=== PATIENT | female | born 1995 | race American Indian/Alaskan Native ===

== ENCOUNTER 2017-09-05 16:59 | Emergency (ER) | payer SELFPAY ==
--- NOTE | 2017-09-05 18:07 | Emergency Department Report ---
ED Female HPI - General Chief complaint: Urogenital-Female Stated complaint: VAGINAL PAIN Time Seen by Provider: 09/05/17 17:50 Source: patient Mode of arrival: Ambulatory Limitations: No Limitations - History of Present Illness Initial comments: Patient is a 22-year-old female with no prior medical history who is who presents to ED complaining of vaginal pain for the past week. Patient states pain is localized to her pelvic region and sometimes her vaginal area. She describes been a sharp, pressure-like pain. Patient states she does get a sharp pain with urination but no burning. Patient states of 2 weeks ago she had a day or 2 of vaginal discharge that resolved. Patient denies vaginal bleeding this is a LMP was last month cannot recall the date. MD Complaint: dysuria, pelvic pain, possible STD - Related Data Previous Rx's Medication Instructions Recorded Last Taken Type Fluconazole [Diflucan TAB] 150 mg PO DAILY #2 tablet 09/05/17 Unknown Rx metroNIDAZOLE [Flagyl] 500 mg PO Q12HR #14 tab 09/05/17 Unknown Rx traMADol [Ultram] 50 mg PO Q6HR PRN #20 tablet 09/05/17 Unknown Rx HYDROcodone/APAP 5-325 [[place] 1 - 2 each PO Q6HR PRN #10 tablet 09/06/17 Unknown Rx 5/325] Ibuprofen [Motrin 800 MG tab] 800 mg PO Q8HR PRN #20 tablet 09/06/17 Unknown Rx Allergies Allergy/AdvReac Type Severity Reaction Status Date / Time No Known Allergies Allergy Unverified 09/05/17 17:19 ED Review of Systems ROS: Stated complaint: VAGINAL PAIN Other details as noted in HPI Constitutional: denies: chills, fever Eyes: denies: eye pain, eye discharge, vision change ENT: denies: ear pain, throat pain Respiratory: denies: cough, shortness of breath, wheezing Cardiovascular: denies: chest pain, palpitations Endocrine: no symptoms reported Gastrointestinal: denies: abdominal pain, nausea, diarrhea Genitourinary: denies: urgency, dysuria, discharge Musculoskeletal: denies: back pain, joint swelling, arthralgia Skin: denies: rash, lesions Neurological: denies: headache, weakness, paresthesias Psychiatric: denies: anxiety, depression Hematological/Lymphatic: denies: easy bleeding, easy bruising ED Past Medical Hx - Past Medical History Previous Medical History?: No Additional medical history: fibroids - Surgical History Past Surgical History?: No - Social History Smoking Status: Never Smoker Substance Use Type: None - Medications Home Medications: Home Medications Medication Instructions Recorded Confirmed Last Taken Type Fluconazole [Diflucan TAB] 150 mg PO DAILY #2 tablet 09/05/17 Unknown Rx metroNIDAZOLE [Flagyl] 500 mg PO Q12HR #14 tab 09/05/17 Unknown Rx traMADol [Ultram] 50 mg PO Q6HR PRN #20 tablet 09/05/17 Unknown Rx HYDROcodone/APAP 5-325 [[place] 1 - 2 each PO Q6HR PRN #10 tablet 09/06/17 Unknown Rx 5/325] Ibuprofen [Motrin 800 MG tab] 800 mg PO Q8HR PRN #20 tablet 09/06/17 Unknown Rx ED Physical Exam - General Limitations: No Limitations General appearance: alert, in no apparent distress - Head Head exam: Present: atraumatic, normocephalic - Eye Eye exam: Present: normal appearance - ENT ENT exam: Present: mucous membranes moist - Neck Neck exam: Present: normal inspection - Respiratory Respiratory exam: Present: normal lung sounds bilaterally. Absent: respiratory distress - Cardiovascular Cardiovascular Exam: Present: regular rate, normal rhythm. Absent: systolic murmur, diastolic murmur, rubs, gallop - GI/Abdominal GI/Abdominal exam: Present: soft, normal bowel sounds - External exam: Present: normal external exam Speculum exam: Present: vaginal discharge, cervical discharge. Absent: vaginal bleeding Bi-manual exam: Present: cervical motion tendernes, other (no uterine mass pALLPATED, NO OVARIAN MASS PALPATED). Absent: adnexal tenderness, uterine enlargement, uterine tenderness - Extremities Exam Extremities exam: Present: normal inspection, full ROM - Back Exam Back exam: Present: normal inspection - Neurological Exam Neurological exam: Present: alert, oriented X3, normal gait - Psychiatric Psychiatric exam: Present: normal affect, normal mood - Skin Skin exam: Present: warm, dry, intact, normal color. Absent: rash ED Course Vital Signs 09/05/17 09/05/17 17:15 19:40 Temperature 97.6 F 97.8 F Pulse Rate 64 56 L Respiratory 18 16 Rate Blood Pressure 110/66 Blood Pressure 108/76 [Left] O2 Sat by Pulse 100 100 Oximetry ED Medical Decision Making - Medical Decision Making 22-year-old female presents with vulvovaginitis/pelvic pain ED course: urinalysis and gonorrhea and Chlamydia cultures obtained. Urinalysis negative test was negative Patient received 250 mg of Rocephin, azithromycin 1g Patient states she has not been sexually active so she is not worried that she has an STD. Due to patient's complains of pelvic pain will prophylax her treat her in ED Discussed with patient findings and treatment. Discussed with the patient she will be going home on antibiotics for bacterial vaginosis and yeast infection as it was positive on her wet prep I discussed the patient and she is to follow-up with [facility] for well woman's exam/ Further testing and management Patient's alert and oriented times 3. Vital signs are normal patient is in no acute discharge. Patient will be discharged home with instructions. Critical care attestation.: If time is entered above; I have spent that time in minutes in the direct care of this critically ill patient, excluding procedure time. ED Disposition Clinical Impression: Vulvovaginal candidiasis, Bacterial vaginosis Disposition: TO HOME OR SELFCARE Is pt being admited?: No Does the pt Need Aspirin: No Condition: Stable Instructions: Bacterial Vaginosis (ED), Uterine Fibroids (ED), Sexually Transmitted Diseases (ED), Vulvovaginal Candidiasis (ED), Chronic Pelvic Pain in Women (ED) Additional Instructions: Make sure to follow up with the primary care physician as discussed. Also follow-up with the [facility] doctors as you've been prescribed. Take all your medications as you've been prescribed. If you have any worsening symptoms or develop new symptoms please return to ED immediately. Prescriptions: Fluconazole [Diflucan TAB] 150 mg PO DAILY #2 tablet metroNIDAZOLE [Flagyl] 500 mg PO Q12HR #14 tab traMADol [Ultram] 50 mg PO Q6HR PRN #20 tablet PRN Reason: Pain Referrals: [facility] [Primary Care Provider] - 3-5 Days JENNIFER LAZO MD [Referring] - 3-5 Days [facility] [Outside] - 3-5 Days [facility] [Outside] - 3-5 Days [facility] [Provider Group] - 3-5 Days Forms: STI Treatment and Prevention, Work/School Release Form(ED) Time of Disposition: 19:08
[2017-09-05 18:51] LABS: HCG Qualitative,Urine Negative (Negative)
[2017-09-05 18:59] LABS: Bilirubin,Urine NEG (Negative); Blood,Urine NEG (Negative); Color,Urine Yellow (Yellow); Mucus,Urine 3+ /HPF; Protein,Urine <15 mg/dL mg/dL (Negative)
[2017-09-05] MEDS ORDERED: XYLOCAINE 1% MPF 5 mL INFILTRATI ONE (19:04)
[2017-09-05] MEDS ORDERED: ROCEPHIN IM ONE (19:04)
[2017-09-05] MEDS ORDERED: ZITHROMAX PO ONE (19:04)
[2017-09-05 20:13] VITALS: BP 108/76
== END 2017-09-05 19:40 | disposition home or self-care (01) ==
LOC: ED 16:59
DX: B37.3 Candidiasis of vulva and vagina (principal); N76.0 Acute vaginitis
CPT/HCPCS: 81001; 81025; 87210; 87591; 96372; 99284; J0696; 99283

== ENCOUNTER 2017-09-06 10:06 | Emergency (ER) | payer SELFPAY ==
[2017-09-06] MEDS ORDERED: ZOFRAN IV ONE (10:58)
[2017-09-06] MEDS ORDERED: MORPHINE IV ONE ×3 (10:58→12:13)
--- NOTE | 2017-09-06 11:05 | Emergency Department Report ---
HPI - General Chief Complaint: Abdominal Pain Time Seen by Provider: 09/06/17 10:45 - HPI HPI: Room 17 The patient is a 22-year-old female presented with a chief complaint of abdominal pain. The patient states her symptoms began 2 months ago with vaginal and lower abdominal pain. Patient seen here yesterday diagnosed bacterial vaginosis and vaginal candidiasis. Patient was given a prescription for Diflucan in addition to metronidazole. Patient states she has only taken the Ultram so far. Patient states that pain medication is not helping for her to come back to the emergency department. Patient describes the pain as throbbing in nature. Patient denies any history of fever Location: Lower abdomen Duration: [See above] Quality: Pain Severity: 04/22 Modifying factors: [see above] Context: [see above] Mode of transportation: [not driving] ED Past Medical Hx - Past Medical History Previous Medical History?: Yes Additional medical history: fibroids - Surgical History Past Surgical History?: No - Family History Family history: no significant - Social History Smoking Status: Never Smoker Substance Use Type: None (denies illicit drug use) - Medications Home Medications: Home Medications Medication Instructions Recorded Confirmed Last Taken Type Fluconazole [Diflucan TAB] 150 mg PO DAILY #2 tablet 09/05/17 Unknown Rx metroNIDAZOLE [Flagyl] 500 mg PO Q12HR #14 tab 09/05/17 Unknown Rx traMADol [Ultram] 50 mg PO Q6HR PRN #20 tablet 09/05/17 Unknown Rx HYDROcodone/APAP 5-325 [[place] 1 - 2 each PO Q6HR PRN #10 tablet 09/06/17 Unknown Rx 5/325] Ibuprofen [Motrin 800 MG tab] 800 mg PO Q8HR PRN #20 tablet 09/06/17 Unknown Rx ED Review of Systems ROS: Stated complaint: VAGINAL PAIN Other details as noted in HPI Constitutional: denies: fever Gastrointestinal: abdominal pain, nausea, vomiting Physical Exam - Physical Exam Vital Signs: Vital Signs 09/06/17 09/06/17 10:18 10:25 Temperature 98 F 98 F Pulse Rate 71 71 Respiratory 16 16 Rate Blood Pressure 124/70 Blood Pressure 124/73 [Right] O2 Sat by Pulse 98 98 Oximetry Physical Exam: GENERAL: The patient is well-developed well-nourished female lying prone on the stretcher. In mild discomfort HEENT: Normocephalic. Atraumatic. Extraocular motions are intact. Patient has moist mucous membranes. NECK: Supple. Trachea midline CHEST/LUNGS: Clear to auscultation. There is no respiratory distress noted. HEART/CARDIOVASCULAR: Regular. There is no tachycardia. There is no gallop rub or murmur. ABDOMEN: Abdomen is soft, with tenderness to palpation in the suprapubic region. Patient has normal bowel sounds. There is no abdominal distention. SKIN: There is no rash. There is no edema. There is no diaphoresis. NEURO: The patient is awake, alert, and oriented. The patient is cooperative. The patient has normal speech MUSCULOSKELETAL: There is no evidence of acute injury. ED Course Vital Signs 09/06/17 09/06/17 10:18 10:25 Temperature 98 F 98 F Pulse Rate 71 71 Respiratory 16 16 Rate Blood Pressure 124/70 Blood Pressure 124/73 [Right] O2 Sat by Pulse 98 98 Oximetry ED Medical Decision Making - Lab Data Result diagrams: 09/06/17 11:07 09/06/17 11:07 - Radiology Data Radiology results: report reviewed (CT abdomen and pelvis), image reviewed (CT abdomen and pelvis) CT ABDOMEN PELVIS WITH CONTRAST: HISTORY: Lower abdominal pain. COMPARISON: none. TECHNIQUE: Helical CT in 1.25mm intervals following IV contrast. Sagittal and coronal reconstructions. FINDINGS: Lung bases: Normal. Liver: Normal. Biliary system: Normal. Pancreas: Normal. Spleen: Normal. Kidneys/ureters/bladder: Normal. Adrenal glands: Normal. Aorta: Normal. Intestines: Normal. Appendix: Normal. Pelvic viscera: The uterus is displaced to the right side of the pelvis by a large rounded mass measuring up to 9.5 x 7.8 cm in axial plane. This appears to represent a large exophytic fibroid projecting from the left lateral uterine wall. This fibroid demonstrates internal cystic change but no calcifications. A few additional smaller uterine fibroids are also suspected. Less likely this could represent a left ovarian mass although I believe I see a separate left ovary which contains a 1.6 cm cyst. The right ovary is not clearly identified. Ascites: Small pelvic ascites. Adenopathy: None. Musculoskeletal: Normal. IMPRESSION: Probable uterine fibroid disease. There appears to be a large exophytic fibroid from the left lateral uterine wall which displaces the uterus to the right. Less likely it a left ovarian lesion could be considered. See above. 1.6 cm left ovarian cyst. Small pelvic ascites. Consider further evaluation with pelvic ultrasound or pelvic MRI with and without contrast. Transcribed By: TTR Dictated By: WARD HU JR, MD Electronically Authenticated By: WARD HU JR, MD Signed Date/Time: 09/06/171207 DD/ 03 TD/TT: 09/06/171207 - Differential Diagnosis bacterial vaginosis, UTI, appendicitis, uterine fibroids Critical care attestation.: If time is entered above; I have spent that time in minutes in the direct care of this critically ill patient, excluding procedure time. ED Disposition Clinical Impression: Acute abdominal pain, Bacterial vaginosis, Vulvovaginal candidiasis, Uterine fibroid, Left ovarian cyst Disposition: TO HOME OR SELFCARE Is pt being admited?: No Does the pt Need Aspirin: No Condition: Stable Instructions: Bacterial Vaginosis (ED), Abdominal Pain (ED), Uterine Fibroids ( ED) Additional Instructions: Return to the emergency department immediately should you develop worsening symptoms, fever, inability to tolerate food or liquid or any other concerns. Prescriptions: HYDROcodone/APAP 5-325 [[place] 5/325] 1 - 2 each PO Q6HR PRN #10 tablet PRN Reason: Pain Ibuprofen [Motrin 800 MG tab] 800 mg PO Q8HR PRN #20 tablet PRN Reason: Pain Referrals: [facility] [Primary Care Provider] - 3-5 Days MISA RODRIGUES MD [Staff Physician] - 3-5 Days (Dr. Rodrigues is an [employer]. Please follow up with him for further evaluation of your uterine fibroids) Forms: STI Treatment and Prevention Time of Disposition: 12:20
[2017-09-06] MEDS ORDERED: NACL ONE (11:10)
[2017-09-06 11:26] LABS: Basophils % (Auto) 0.5 % (0.0-1.8); Eosinophils # (Auto) 0.3 K/mm3 (0.0-0.4); Eosinophils % (Auto) 4.6 % (0.0-4.3); Hematocrit 38.4 % (30.3-42.9); Hemoglobin 12.4 gm/dl (10.1-14.3); Lymphocytes # (Auto) 1.9 K/mm3 (1.2-5.4); Lymphocytes % (Auto) 25.6 % (13.4-35.0); Mean Corpuscular HGB Conc 32 % (30-34); Mean Corpuscular Hemoglobin 27 pg (28-32); Mean Corpuscular Volume 83 fl (79-97); Monocytes # (Auto) 0.5 K/mm3 (0.0-0.8); Monocytes % (Auto) 7.2 % (0.0-7.3); Platelet Count 249 K/mm3 (140-440); Red Blood Count 4.62 M/mm3 (3.65-5.03); Red Cell Distribution Width 14.9 % (13.2-15.2)
[2017-09-06 11:42] LABS: BUN/Creatinine Ratio 14; Blood Urea Nitrogen 7 mg/dL (7-17); Calcium 9.1 mg/dL (8.4-10.2); Hemolysis Index 147
--- NOTE | 2017-09-06 12:15 | Cat Scan Report ---
CT ABDOMEN PELVIS WITH CONTRAST: HISTORY: Lower abdominal pain. COMPARISON: none. TECHNIQUE: Helical CT in 1.25mm intervals following IV contrast. Sagittal and coronal reconstructions. FINDINGS: Lung bases: Normal. Liver: Normal. Biliary system: Normal. Pancreas: Normal. Spleen: Normal. Kidneys/ureters/bladder: Normal. Adrenal glands: Normal. Aorta: Normal. Intestines: Normal. Appendix: Normal. Pelvic viscera: The uterus is displaced to the right side of the pelvis by a large rounded mass measuring up to 9.5 x 7.8 cm in axial plane. This appears to represent a large exophytic fibroid projecting from the left lateral uterine wall. This fibroid demonstrates internal cystic change but no calcifications. A few additional smaller uterine fibroids are also suspected. Less likely this could represent a left ovarian mass although I believe I see a separate left ovary which contains a 1.6 cm cyst. The right ovary is not clearly identified. Ascites: Small pelvic ascites. Adenopathy: None. Musculoskeletal: Normal. IMPRESSION: Probable uterine fibroid disease. There appears to be a large exophytic fibroid from the left lateral uterine wall which displaces the uterus to the right. Less likely it a left ovarian lesion could be considered. See above. 1.6 cm left ovarian cyst. Small pelvic ascites. Consider further evaluation with pelvic ultrasound or pelvic MRI with and without contrast.
[2017-09-06 13:49] VITALS: BP 120/80
== END 2017-09-06 12:34 | disposition home or self-care (01) ==
LOC: ED 10:06
DX: D25.9 Leiomyoma of uterus, unspecified (principal); N83.202 Unspecified ovarian cyst, left side; B37.3 Candidiasis of vulva and vagina; N76.0 Acute vaginitis
CPT/HCPCS: 36415; 74177; 80048; 85025; 96374; 96375; 96376; 99284; J2270; J2405; Q9967

== ENCOUNTER 2019-06-16 10:32 | Emergency (ER) | payer SELFPAY ==
[2019-06-16 10:40] VITALS: BP 138/94
[2019-06-16 11:56] LABS: HCG Qualitative,Urine Negative (Negative)
[2019-06-16 11:57] LABS: Mucus,Urine 3+ /HPF
[2019-06-16 11:58] LABS: RBC,Urine > 182.0 /HPF (0.0-6.0)
[2019-06-16 12:00] LABS: Bilirubin,Urine NEG (Negative); Blood,Urine LG (Negative); Color,Urine Yellow (Yellow); Urobilinogen,Urine < 2.0 mg/dL (<2.0)
--- NOTE | 2019-06-16 12:06 | Emergency Department Report ---
Chief Complaint: Urogenital-Female Stated Complaint: VAGINAL PAIN Time Seen by Provider: 06/16/19 11:42 - HPI History of Present Illness: This is a 24-year-old female here reports that she is having in right-sided vaginal pain from ingrown hair. She said it is swollen and pain is 6 out of 10 to side. Denies any vaginal discharge, nausea vomiting. She says she has pelvic cramping on and off which is from previous laparoscopic surgery to remove fibroid. Patient is currently on her period. Denies any back pain, urinary burning, frequency or urgency. Denies any shortness of breath chest pain. Denies any fever or chills. Pain feels sore and burning at right vaginal area. Denies taking any medication. Pain is worse with touch and intermittent. - ROS Review of Systems: General: Fever chills, negative anxiety, negative malaise or weakness : Positive external genital sore throat is painful. It is vaginal discharge, positive menses, negative urinary burning, frequency or urgency. Abdomen: Negative abdominal pain. Positive pelvic cramping on and off since laparoscopic surgery but none today. Back: Back pain, negative flank pain Chest: Negative shortness of breath, wheezing, cough CV: No chest pain, negative edema or palpitation Skin: See otherwise normal - Exam Vital Signs: Vital Signs 06/16/19 06/16/19 10:38 11:59 Temperature 98.1 F Pulse Rate 109 H 82 Respiratory 16 Rate Blood Pressure 138/94 [Left] O2 Sat by Pulse 100 Oximetry Physical Exam: Gen.: Is a 24-year-old female well-nourished well-developed nontoxic in appearance. Vital signs stable, she is afebrile. Lungs: Clear Auscultated bilaterally, no rhonchi wheezes or rales Abdomen: Soft, nontender to palpation in all quadrants. No suprapubic tenderness. No guarding or rebound. Back: Tender to palpate without any CVA tenderness : Noted small sore to right labia that is tender to palpate that appears to be here follicle but no erythema. Noted vaginal bleeding in an patient is on her period. Psych: Normal mood and behavior MSE screening note: Focused history and physical exam performed. Due to findings the following was ordered: This is a 24-year-old female here for right-sided vaginal bump just painful. She is currently under.. Urinalysis shows large amount of blood in the urine but patient is unable. Otherwise stable. Urine test is negative. I discussed the patient states her condition is not a medical emergency and she does have follow-up with [employer] since she does not have any insurance and primary care for Pap smear and further evaluation of folliculitis. I gave patient information in [facility] along with good Rx card. She has no abdominal tenderness. She has no pelvic tenderness. She has had recent fibroids removal in the past which she said causes her to have pain on and off to her pelvic area but she is currently not having any pain. Vital signs stable she is afebrile and discharge from the ED in stable condition referred to outpatient clinic for management of folliculitis that is stable. I discussed this with patient in details and she voiced understanding. Patient discussed with doctor:: [facility] ED Disposition for MSE Condition: Stable
== END 2019-06-16 14:00 | disposition home or self-care (01) ==
LOC: ED 10:32
DX: R10.2 Pelvic and perineal pain (principal)
CPT/HCPCS: 81001; 81025